=== PATIENT | male | born 1985 | race Caucasian/White ===

== ENCOUNTER 2017-09-14 15:53 | Emergency (ER) | payer OTHER ==
[~2017-09-14] VITALS: Wt 67.0 kg
[2017-09-14 17:25] LABS: BASOPHILS % 0.4 % (0.0-2.0); EOSINOPHILS % 0.1 % (0.0-7.0); HEMATOCRIT 41.6 % (42.0-52.0); HEMOGLOBIN 14.7 g/dl (14.0-18.0); LYMPHOCYTES # 1.4 10^3/ul (0.8-2.9); LYMPHOCYTES % 19.2 % (15.0-51.0); MEAN CORPUSCULAR HEMOGLOBIN 30.4 pg (29.0-33.0); MEAN CORPUSCULAR HGB CONC 35.3 g/dl (32.0-37.0); MEAN CORPUSCULAR VOLUME 86.1 fl (82.0-101.0); MEAN PLATELET VOLUME 11.1 fl (7.4-10.4); MONOCYTE # 0.4 10^3/ul (0.3-0.9); MONOCYTES % 4.7 % (0.0-11.0); NEUTROPHIL # 5.6 10^3/ul (1.6-7.5); NEUTROPHILS % 75.5 % (39.0-77.0); PLATELET COUNT 194 10^3/UL (140-415); RED BLOOD COUNT 4.83 10^6/ul (4.70-6.10); RED CELL DISTRIBUTION WIDTH 11.4 % (11.5-14.5); WHITE BLOOD COUNT 7.4 10^3/ul (4.8-10.8)
[2017-09-14] MEDS ORDERED: LORAZEPAM 1 MG TAB PO ONE (17:30)
[2017-09-14 17:49] LABS: CALCIUM 10.2 mg/dl (8.4-10.2); CREATININE 0.83 mg/dl (0.61-1.24); POTASSIUM 4.5 mmol/L (3.5-5.1)
[2017-09-14] MEDS ORDERED: INSULIN LISPRO 100 UNIT/ML VIAL SC STA (17:56)
[2017-09-14 18:21] VITALS: BP 110/62; PULSE 65; RESP 19; TEMP 97.9
--- NOTE | 2017-09-14 18:54 | ERD ---
ER Documentation Chief Complaint Chief Complaint PT HERE FOR HIGH BLOOD SUGAR, PT UNDER POLICE CUSTODY HPI Patient is a 31-year-old male with diabetes who presents for high blood sugar. He is under arrest for heroin use. He was brought to the ER for medical clearance by police. He has high blood sugar. He feels thirsty and is peeing a lot. He admits to using heroin recently. He takes Humalog and NovoLog for diabetes. He does not currently have a primary doctor. ROS All systems reviewed and are negative except as per history of present illness. Allergies Allergies: Coded Allergies: No Known Allergy (Unverified , 09/14/17) PMhx/Soc Medical and Surgical Hx: pt denies Surgical Hx Hx Miscellaneous Medical Probl: Yes (DM) Hx Alcohol Use: No Hx Substance Use: No Hx Tobacco Use: No Smoking Status: Never smoker FmHx Family History: No diabetes Physical Exam Vitals Vital Signs Date Time Temp Pulse Resp B/P Pulse Ox O2 Delivery O2 Flow Rate FiO2 09/14/17 18:21 97.9 65 19 110/62 100 Room Air 09/14/17 16:06 97.0 97 17 113/67 99 Physical Exam Const: Anxious Head: Atraumatic Eyes: Normal Conjunctiva ENT: Normal External Ears, Nose and Mouth. Neck: Full range of motion..~ No meningismus. Resp: Clear to auscultation bilaterally Cardio: Regular rate and rhythm, no murmurs Abd: Soft, non tender, non distended. Normal bowel sounds Skin: No petechiae or rashes Back: No midline or flank tenderness Ext: No cyanosis, or edema Neur: Awake and alert Psych: Anxious but no suicidal or homicidal ideation Result Diagram: 09/14/17 1705 09/14/17 1705 Results 24 hrs Laboratory Tests Test 09/14/17 16:15 09/14/17 16:55 09/14/17 17:05 09/14/17 18:10 Bedside Glucose 371mg/dL 346mg/dL 265mg/dL White Blood Count 7.410^3/ul Red Blood Count 4.8310^6/ul Hemoglobin 14.7g/dl Hematocrit 41.6% Mean Corpuscular Volume 86.1fl Mean Corpuscular Hemoglobin 30.4pg Mean Corpuscular Hemoglobin Concent 35.3g/dl Red Cell Distribution Width 11.4% Platelet Count 71018^3/UL Mean Platelet Volume 11.1fl Neutrophils % 75.5% Lymphocytes % 19.2% Monocytes % 4.7% Eosinophils % 0.1% Basophils % 0.4% Nucleated Red Blood Cells % 0.0/100WBC Neutrophils # 5.610^3/ul Lymphocytes # 1.410^3/ul Monocytes # 0.410^3/ul Eosinophils # 0.010^3/ul Basophils # 0.010^3/ul Nucleated Red Blood Cells # 0.010^3/ul Sodium Level 135mmol/L Potassium Level 4.5mmol/L Chloride Level 95mmol/L Carbon Dioxide Level 27mmol/L Anion Gap 18 Blood Urea Nitrogen 19mg/dl Creatinine 0.83mg/dl Glucose Level 345mg/dl Lactic Acid Level 2.6mmol/L Calcium Level 10.2mg/dl Current Medications Medications (Trade) Dose Ordered Sig/Jd Route PRN Reason Start Time Stop Time Status Last Admin Dose Admin Lorazepam (Ativan) 1 mg ONCE ONCE PO 09/14/17 17:30 09/14/17 17:31 DC 09/14/17 18:08 Insulin Human Lispro (Humalog) 10 unit ONCE STAT SC 09/14/17 17:56 09/14/17 17:57 DC 09/14/17 18:14 Procedures/MDM Smoking Cessation Therapy: Pt. was lectured for greater than 3 minutes on the health risks of continued smoking and the benefits of cessation. Patient is a 31-year-old male who presents with high blood sugar. He has hyperglycemia but no signs of diabetic ketoacidosis at this time based on his laboratory results. Lactic acid was slightly elevated at 2.6 but at this point I see no sign of bacterial infection I doubt sepsis or other serious etiology. The patient was given Humalog 10 units subcutaneous and is stable for discharge into police custody. He will need to be managed by the intermediate doctor. He can return for any worsening symptoms. He will be given a list of the local community clinics. Departure Diagnosis: Primary Impression: Hyperglycemia Condition: Fair Patient Instructions: Hyperglycemia (High Blood Sugar) Referrals: COMMUNITY CLINICS YOU HAVE RECEIVED A MEDICAL SCREENING EXAM AND THE RESULTS INDICATE THAT YOU DO NOT HAVE A CONDITION THAT REQUIRES URGENT TREATMENT IN THE EMERGENCY DEPARTMENT. FURTHER EVALUATION AND TREATMENT OF YOUR CONDITION CAN WAIT UNTIL YOU ARE SEEN IN YOUR DOCTORS OFFICE WITHIN THE NEXT 1-2 DAYS. IT IS YOUR RESPONSIBILITY TO MAKE AN APPOINTMENT FOR FOLOW-UP CARE. IF YOU HAVE A PRIMARY DOCTOR --you should call your primary doctor and schedule an appointment IF YOU DO NOT HAVE A PRIMARY DOCTOR YOU CAN CALL OUR PHYSICIAN REFERRAL HOTLINE AT IF YOU CAN NOT AFFORD TO SEE A PHYSICIAN YOU CAN CHOSE FROM THE FOLLOWING [facility] CL[facility]ICS [facility] [address] [facility] [address] [facility] [address] [facility] [address]. [facility] [address] [facility] [facility]. [address] Additional Instructions: Call your primary care doctor TOMORROW for an appointment during the next 1-2 days.See the doctor sooner or return here if your condition worsens before your appointment time. PENNIE SAPP MD Sep 14, 2017 18:54
== END 2017-09-14 18:27 ==
LOC: E/R 15:53
DX: E11.65 Type 2 diabetes mellitus with hyperglycemia (principal); F41.9 Anxiety disorder, unspecified; Z79.4 Long term (current) use of insulin
CPT/HCPCS: 36415; 80048; 82962; 83605; 85025; 96372; 99284; J1815